=== PATIENT | female | born 1995 | race Caucasian/White ===

== ENCOUNTER 2019-05-16 06:31 | Emergency (ER) | payer BC ==
[~2019-05-16] VITALS: Ht 165.1 cm; Wt 59.1 kg
[2019-05-16 06:37] VITALS: TEMP 97.8
[2019-05-16 07:05] LABS: COLLECTION METHOD CATHETER
[2019-05-16 07:08] LABS: BASO # 0.1 (0.0-0.2); BASO % 0.5 % (0.0-2.0); EOS # 0.3 (0.0-0.7); GRAN # 6.9 (1.4-6.5); GRAN % 64.1 % (42.2-75.2); HEMATOCRIT 42.1 % (37.0-47.0); HEMOGLOBIN 13.8 g/dl (12.5-16.0); LYMPH # 2.2 (1.2-3.4); LYMPH % 20.2 % (20.0-51.0); MEAN CELL VOLUME 88 fl (80.0-100.0); MEAN CORPUSCULAR HEMOGLOBIN 29 pg (27.0-31.0); MEAN CORPUSCULAR HGB CONC 33 g/dl (33.0-37.0); MONO # 1.3 (0.1-0.6); MONO % 11.7 % (1.7-9.3); PLATELET COUNT 368 K/mm3 (130-400); REDCELL DISTRIBUTION WIDTH-CV 11.9 % (11.5-14.5)
[2019-05-16] MEDS ORDERED: PRIL40 PO (07:12)
[2019-05-16 07:13] LABS: MUCOUS Present /lpf; PH 5 (5-8); SQUAMOUS EPITHELIAL 0-2 /hpf; URINE APPEARANCE Hazy; URINE BACTERIA None Seen /hpf; URINE BILIRUBIN Negative (NEGATIVE); URINE BLOOD 2+ (NEGATIVE); URINE COLOR Yellow; URINE GLUCOSE Negative (NEGATIVE); URINE KETONE Negative (NEGATIVE); URINE LEUKOCYTE ESTERASE Negative (NEGATIVE); URINE NITRATE Negative (NEGATIVE); URINE PROTEIN(semi-quant) Negative (NEGATIVE); URINE RBC >50 /hpf; URINE UROBILINOGEN Negative (NEGATIVE)
[2019-05-16] MEDS ORDERED: ORTHO TRI-CYCLE1 TAB PO (07:14)
[2019-05-16 07:18] LABS: ALANINE AMINOTRANSFERASE < 6 U/L (9-52); ALBUMIN 4.3 gm/dL (3.5-5.0); ALKALINE PHOSPHATASE 66 U/L (50-136); ANION GAP 10 mmol/L (7-16); AST,SGOT 21 U/L (15-37); BILIRUBIN,TOTAL 0.2 mg/dL (0.0-1.0); BLOOD UREA NITROGEN 12 mg/dL (7-17); CARBON DIOXIDE 23 mmol/L (22-30); CHLORIDE 105 mmol/L (98-107); CREATININE, serum 0.79 (0.52-1.25); GLUCOSE 115 mg/dL (74-106); POTASSIUM 3.8 mmol/L (3.4-5.0); SODIUM 139 mmol/L (137-145); TOTAL PROTEIN 7.9 gm/dL (6.4-8.2)
[2019-05-16] MEDS ORDERED: NORCO 325 MG-51 TAB PO (10:20)
[2019-05-16] MEDS ORDERED: ZOFRAN ODT4 MG PO (10:20)
[2019-05-16 10:34] VITALS: BP 105/69; PULSE 70
== END 2019-05-16 10:35 | disposition home or self-care (01) ==
LOC: COL.ER 06:31
PROVIDERS: Emergency Medicine
DX: N20.2 Calculus of kidney with calculus of ureter (principal); K21.9 Gastro-esophageal reflux disease without esophagitis
CPT/HCPCS: J1170; J1885; J2405; J3010; J7030; Q9967